=== PATIENT | male | born 1955 | race Caucasian/White ===

== ENCOUNTER 2019-03-01 11:41 | Emergency (ER) | payer SELFPAY ==
[2019-03-01 12:15] VITALS: BP 124/77; PULSE 86; TEMP 97.8; BMI 24.1
[2019-03-01] MEDS ORDERED: MECLIZINE HCL 25 MG TABLET (FP) PO ONE (15:16)
[2019-03-01] MEDS ORDERED: MECLIZINE HCL 25 MG TABLET (FP) ONE (15:25)
--- NOTE | 2019-03-01 15:34 | PDOC ---
History of Present Illness <Ashley Brooke Nery - Last Filed: 03/01/19 17:18> - General History Source: Patient Exam Limitations: Clinical Condition - History of Present Illness Initial Comments: 03/01/19 15:24 Patient with past medical history Of alcohol abuse present with daughter with complaint of 1 month history of intermittent dizziness, spinning sensation, blurry vision and elevated home sugar test. Patient reported he has not seen any provider in over 5 years. Patient reported had a glucose check at home 2 days ago which was 300 nonfasting and again checked yesterday which was 285. Patient reported he was told in the past of elevated glucose many years ago but is never followed up since then. Patient reported he stopped drinking alcohol a month ago suddenly after being a heavy drinker of almost a case of beer a day for many years and stopped suddenly on beginning of January. Patient also reported also stop smoking at the same time. Patient has not had any alcohol since of a month ago.Denies nausea, vomiting, chest pain, shortness of breath, weakness. Patient has not taken anything for symptoms Is this a multiple visit Asthma Patient?: No Timing/Duration: other (1 month) <Jose Antonio Peraza - Last Filed: 03/01/19 17:54> - General Chief Complaint: Lightheaded Stated Complaint: DIZZINESS Time Seen by Provider: 03/01/19 14:48 Past History <Ashley Brooke Nery - Last Filed: 03/01/19 17:18> - Past Medical History COPD: No - Immunization History Immunization Up to Date: Yes - Psycho Social/Smoking Cessation Hx Smoking History: Never smoked Information on smoking cessation initiated: No Hx Alcohol Use: No Drug/Substance Use Hx: No <Jose Antonio Peraza - Last Filed: 03/01/19 17:54> - Past Medical History Allergies/Adverse Reactions: Allergies Allergy/AdvReac Type Severity Reaction Status Date / Time No Known Allergies Allergy Verified 03/01/19 12:12 Home Medications: Ambulatory Orders Metformin HCl [Glucophage] 500 mg PO BID 30 Days #60 tablet 03/01/19 *Physical Exam - Vital Signs Last Vital Signs Temp Pulse Resp BP Pulse Ox 97.8 F 86 16 124/77 98 03/01/19 12:12 03/01/19 12:12 03/01/19 12:12 03/01/19 12:12 03/01/19 12:12 <Ashley Brooke - Last Filed: 03/01/19 17:18> - Vital Signs Last Vital Signs Temp Pulse Resp BP Pulse Ox 97.8 F 86 16 124/77 98 03/01/19 12:12 03/01/19 12:12 03/01/19 12:12 03/01/19 12:12 03/01/19 12:12 - Physical Exam 03/01/19 15:42 GENERAL: Well developed, well nourished. Awake and alert. No acute distress. HEENT: Normocephalic, atraumatic. PERRLA, EOMI. No conjunctival pallor. Sclera are non-icteric. Moist mucous membranes. Oropharynx is clear. NECK: Supple. Full ROM. CARDIOVASCULAR: Regular rate and rhythm. No murmurs, rubs, or gallops. Distal pulses are 2+ and symmetric. PULMONARY: No evidence of respiratory distress. Lungs clear to auscultation bilaterally. No wheezing, rales or rhonchi. ABDOMINAL: Soft. Non-tender. Non-distended. No rebound or guarding. No organomegaly. Normoactive bowel sounds. MUSCULOSKELETAL Normal range of motion at all joints. SKIN: Warm and dry. Normal capillary refill. No rashes. No jaundice. NEUROLOGICAL: Alert, awake, appropriate. Gait is normal without ataxia. No asterixis on exam. Normal neuro PSYCHIATRIC: Cooperative. Good eye contact. Appropriate mood General Appearance: Yes: Nourished, Appropriately Dressed. No: Apparent Distress <Jose Antonio Peraza - Last Filed: 03/01/19 17:54> ED Treatment Course - LABORATORY CBC & Chemistry Diagram: 03/01/19 15:17 03/01/19 15:17 - ADDITIONAL ORDERS Additional order review: Laboratory Results 03/01/19 03/01/19 03/01/19 15:17 15:17 15:17 Sodium 135 L Potassium 4.8 Chloride 104 Carbon Dioxide 26 Anion Gap 6 L BUN 19.5 H Creatinine 0.7 Est GFR (CKD-EPI)AfAm 116.40 Est GFR (CKD-EPI)NonAf 100.43 POC Glucometer 235 Random Glucose 238 H Calcium 9.3 Magnesium 2.3 Total Bilirubin 0.5 AST 54 H ALT 118 H Alkaline Phosphatase 77 Total Protein 7.7 Albumin 4.0 Total Amylase 39 Lipase 182 TSH 8.41 H 03/01/19 03/01/19 15:17 15:17 RBC 4.90 MCV 93.3 MCHC 35.3 RDW 12.5 MPV 10.3 Neutrophils % 58.9 Lymphocytes % 28.2 Monocytes % 11.4 H Eosinophils % 1.2 Basophils % 0.3 POC Glucometer 235 - Medications Given in the ED: ED Medications Discontinued Medications Generic Name Dose Route Start Last Admin Trade Name North PRN Reason Stop Dose Admin Meclizine HCl 25 mg 03/01/19 15:16 03/01/19 15:33 Antivert - PO 03/01/19 15:17 25 mg ONCE ONE Administration <Ashley Brooke - Last Filed: 03/01/19 17:18> - LABORATORY CBC & Chemistry Diagram: 03/01/19 15:17 03/01/19 15:17 - ADDITIONAL ORDERS Additional order review: Laboratory Results 03/01/19 15:17 POC Glucometer 235 03/01/19 15:17 POC Glucometer 235 <Jose Antonio Peraza - Last Filed: 03/01/19 17:54> Medical Decision Making - Medical Decision Making The patient was seen and evaluated in conjunction with midlevel provider under my direct supervision, ancillary studies were reviewed. I agree with the plan as outlined with PETER Peraza. HPI, workup/dispo as outlined. VS reviewed, wnl. neuro intact. Fingerstick mildly elevated >285, labs unremarkable. anticipate discharge, pcp followup, return precautions 03/01/19 17:18 03/01/19 17:19 <Ashley Brooke - Last Filed: 03/01/19 17:18> - Medical Decision Making 03/01/19 15:27 Patient with past medical history Of alcohol abuse present with daughter with complaint of 1 month history of intermittent dizziness, spinning sensation, blurry vision and elevated home sugar test. Patient reported he has not seen any provider in over 5 years. Patient reported had a glucose check at home 2 days ago which was 300 nonfasting and again checked yesterday which was 285. Patient reported he was told in the past of elevated glucose many years ago but is never followed up since then. Patient reported he stopped drinking alcohol a month ago suddenly after being a heavy drinker of almost a case of beer a day for many years and stopped suddenly on beginning of January. Patient also reported also stop smoking at the same time. Patient has not had any alcohol since of a month ago.Denies nausea, vomiting, chest pain, shortness of breath, weakness. Patient has not taken anything for symptoms Clinical exam significant for mild bilateral jaundice otherwise unremarkable exam. Normal neuro exam. Patient no acute distress. Patient symptoms likely vertigo which could be attributed by suddenly quiting alcohol 03/01/19 17:53 CBC and chemistry lab within normal limits. Fingerstick to 235 nonfasting. Patient stable for discharge on metformin for diabetes 500 mg twice daily with follow-up for primary care establishment and follow-up care <Jose Antonio Peraza - Last Filed: 03/01/19 17:54> Discharge <Ashley Brooke - Last Filed: 03/01/19 17:18> - Discharge Information Problems reviewed: Yes - Admission No <Jose Antonio Peraza - Last Filed: 03/01/19 17:54> - Discharge Information Clinical Impression/Diagnosis: Dizziness and giddiness Diabetes Qualifiers: Diabetes mellitus type: type 2 Diabetes mellitus terminal operations manager insulin use: without care home use Diabetes mellitus complication status: without complication Qualified Code(s): E11.9 - Type 2 diabetes mellitus without complications Condition: Stable Disposition: HOME - Additional Discharge Information Prescriptions: Metformin HCl [Glucophage] 500 mg PO BID 30 Days #60 tablet - Follow up/Referral Referrals: Carol Ann Howell MD [Staff Physician] - - Patient Discharge Instructions Patient Printed Discharge Instructions: Lifestyle Changes as Effective as Drugs in Preventing Progression to Diabet, Type 2 Diabetes Additional Instructions: Your blood work is normal except your glucose level which is high. Take prescribed medication for diabetes. Follow-up with referred primary care to take care of your diabetes
[2019-03-01 15:39] LABS: BASO % 0.3 % (0-2.0); EOS % 1.2 % (0-4.5); HEMATOCRIT 45.7 % (35.4-49); HEMOGLOBIN 16.2 GM/dL (11.7-16.9); LYMPH % 28.2 % (8-40); MCH 32.9 pg (25.7-33.7); MCHC 35.3 g/dl (32.0-35.9); MEAN CELL VOLUME 93.3 fl (80-96); MEAN PLT VOLUME 10.3 fl (7.5-11.1); MONO % 11.4 % (3.8-10.2); NEUT % 58.9 % (42.8-82.8); PLATELET COUNT 98 K/MM3 (134-434); RDW 12.5 % (11.9-15.9)
[2019-03-01 16:33] LABS: BILIRUBIN,TOTAL 0.5 mg/dL (0.2-1); BLOOD UREA NITROGEN 19.5 mg/dL (7-18); CALCIUM 9.3 mg/dL (8.5-10.1); CREATININE 0.7 mg/dL (0.55-1.3); TOT PROT 7.7 g/dl (6.4-8.2)
[2019-03-01 16:34] LABS: POTASSIUM 4.8 mmol/L (3.5-5.1)
== END 2019-03-01 17:47 | disposition home or self-care (01) ==
LOC: JER 11:41
DX: E11.9 Type 2 diabetes mellitus without complications (principal); R42 Dizziness and giddiness
CPT/HCPCS: 36415; 80053; 82150; 82962; 83690; 83735; 84443; 85025; 99283-25